=== PATIENT | male | born 1950 | race Hispanic/Latino ===

== ENCOUNTER 2019-09-20 03:20 | Inpatient (IN) | payer OTHER ==
--- OUTSIDE RECORDS SUMMARY | 2019-09-20 03:23 | XMS REPORT ---
:1950 Author Organization eClinicalWorks Care Team Providers Name Role Phone Braxton Payne Provider Role Unavailable Allergies, Adverse Reactions, Alerts Substance Reaction Event Type N.K.D.A. Info Not Available Non Drug Allergy Problems Problem Type Condition Code Onset Dates Condition Statu s Problem Pain in joint of left knee M25.562 A ctive Problem Primary osteoarthritis of left knee M17.12 Active Assessment Primary osteoarthritis of left knee M17.12 Active Assessment Pain in joint of left knee M25.562 A ctive Medications Medication Code Code Instructions Start End Date Status Dosage System Date Combigan [facility] [address]-62 Active not defined Indapamide [facility] [address]-98 Active not defined Flonase [facility] [id number] Active not defined Fenofibrate [facility] [address]-93 Active not defined Omeprazole [facility] 29081207082 Active not defined Lumigan [facility] [address]-85 Active not defined Carbamazepine [facility] [address]-80 Active not defined Celecoxib [facility] [address]-58 Active not defined Results No Known Results Summary Purpose eClinicalWorks Submission
--- OUTSIDE RECORDS SUMMARY | 2019-09-20 03:23 | XMS REPORT ---
[...] Start End Date Status Dosage System Date Indapamide [facility] [address]-14 Active not defined Flonase [facility] 69148536771 Active not defined Fenofibrate [facility] [address]-42 Active not defined Omeprazole [facility] 13394962652 Active not defined Carbamazepine [facility] [address]-22 Active not defined Lumigan [facility] [address]-30 Active not defined Celecoxib [facility] [address]-85 Active not defined Combigan [facility] [address]-71 Active not defined Results No Known Results Summary Purpose eClinicalWorks Submission
--- OUTSIDE RECORDS SUMMARY | 2019-09-20 03:23 | XMS REPORT ---
:1950 Author Organization eClinicalWorks Care Team Providers Name Role Phone See Lopez Provider Role Unavailable Allergies, Adverse Reactions, Alerts [...] Start End Date Status Dosage System Date Fenofibrate [facility] [address]-98 Active not defined Omeprazole [facility] 15077295651 Active not defined Lumigan [facility] [address]-44 Active not defined Indapamide [facility] [address]-89 Active not defined [address] [facility] [address]-49 Active not defined Flonase [facility] 66757974293 Active not defined Combigan [facility] [address]-40 Active not defined Carbamazepine [facility] [address]-11 Active not defined Results No Known Results Summary Purpose eClinicalWorks Submission
--- OUTSIDE RECORDS SUMMARY | 2019-09-20 03:23 | XMS REPORT ---
[...] Start End Date Status Dosage System Date Lumigan [facility] [address]-13 Active not defined Indapamide [facility] [address]-09 Active not defined Omeprazole [facility] 08228053705 Active not defined Celecoxib [facility] [address]-40 Active not defined Carbamazepine [facility] [address]-31 Active not defined Combigan [facility] [address]-99 Active not defined Flonase [facility] 05155937759 Active not defined Fenofibrate [facility] [address]-28 Active not defined Results No Known Results Summary Purpose eClinicalWorks Submission
--- OUTSIDE RECORDS SUMMARY | 2019-09-20 03:23 | XMS REPORT ---
[...] joint of left knee M25.562 A ctive Assessment Primary osteoarthritis of left knee M17.12 Active Medications Medication Code Code Instructions Start End Date Status Dosage System Date Lumigan [facility] [address]-19 Active not defined Combigan [facility] [address]-41 Active not defined Flonase [facility] 00317516342 Active not defined Celecoxib [facility] [address]-10 Active not defined Carbamazepine [facility] [address]-25 Active not defined Indapamide [facility] [address]-15 Active not defined Omeprazole [facility] 21798229357 Active not defined Fenofibrate [facility] [address]-40 Active not defined Results No Known Results Summary Purpose eClinicalWorks Submission
--- OUTSIDE RECORDS SUMMARY | 2019-09-20 03:23 | XMS REPORT ---
:1950 Author Organization eClinicalWorks Care Team Providers Name Role Phone See Lopez Provider Role Unavailable Allergies No Known Allergies Problems Problem Type Condition Code Onset Dates Condition Statu s Problem Pain in joint of left knee M25.562 A ctive Problem Primary osteoarthritis of left knee M17.12 Active Medications No Known Medications Results No Known Results Summary Purpose eClinicalWorks Submission
--- OUTSIDE RECORDS SUMMARY | 2019-09-20 03:23 | XMS REPORT ---
[...] Start End Date Status Dosage System Date Flonase [facility] [id number] Active not defined Omeprazole [facility] 76785586761 Active not defined Lumigan [facility] [address]-21 Active not defined Carbamazepine [facility] [address]-61 Active not defined Celecoxib [facility] [address]-27 Active not defined Combigan [facility] [address]-66 Active not defined Fenofibrate [facility] [address]-52 Active not defined Indapamide [facility] [address]-35 Active not defined Results No Known Results Summary Purpose eClinicalWorks Submission
--- OUTSIDE RECORDS SUMMARY | 2019-09-20 03:23 | XMS REPORT ---
:1950 Author Organization eClinicalWorks Care Team Providers Name Role Phone Payne Braxton Provider Role Unavailable Allergies, Adverse Reactions, Alerts [...] left knee M17.12 Active Medications Medication Code System Code Instructions Start Date End Date Status Dosage Celecoxib [facility] 30594-946 Active not defined 6-06 Flonase NDC 0 Active not defined Carbamazepine [facility] 71324-587 Active not defi alex 9-01 Lumigan [facility] 84707-949 Active not defined 5-03 Omeprazole [facility] 76055-940 Active not defined 1-01 Combigan [facility] 55689-661 Active not defined 1-05 Fenofibrate [facility] 71570-363 Active not define d 3-10 Indapamide [facility] 12759-152 Active not defined 7-11 Results No Known Results Summary Purpose eClinicalWorks Submission
--- OUTSIDE RECORDS SUMMARY | 2019-09-20 03:23 | XMS REPORT ---
:1950 Author Organization [facility] t Address [address] [place] [address] Care Team Providers Name Role Phone Unavailable Unavailable Unavailable Problems Condition Condition Condition Status Onset Resolution Last Treating Co mments Source Name Details Category Date Date Treatment Clinician Date Pain in Pain in Diagnosis [facility] Primary Primary Diagnosis [facility] Allergies, Adverse Reactions, Alerts This patient has no known allergies or adverse reactions. Medications Ordered Filled Start Stop Current Ordering Indication Dosage Frequency Signature Comments Components Source Medication Medication Date Date Medication? Clinician (SIG) Name Name Celecoxib Celecoxib Yes See not [facility] Carbamazepi Carbamazepi Yes See not [facility] Lumigan Lumigan Yes See not [facility] Combigan Combigan Yes See not [facility] Fenofibrate Fenofibrate Yes See not [facility] Indapamide Indapamide Yes See not [facility] Flonase Flonase Yes See not [facility] Omeprazole Omeprazole Yes See not [facility] Procedures This patient has no known procedures. Encounters Start End Encounter Admission Attending Care Care Encounter Source Date/Time Date/Time Type Type Clinicians Facility Department ID 2019-06-28 2019-06-28 [facility] [id number] [facility] 2019-06-21 2019-06-21 [facility] [id number] [facility] 10[facility] 2019-06-15 2019-06-15 [facility] [id number] 10[facility] 10:15[facility] 2019-06-07 2019-06-07 [facility] [id number] 12:33:00 12:33:00 [facility] 2019-06-04 2019-06-04 [facility] [id number] 10[facility]47:00 10:47:00 [facility] 2019-05-28 2019-05-28 [facility] [id number] 08[facility]30:00 08:30:00 [facility] 2018-11-22 2018-11-22 [facility] [id number] 15:30:00 15:30:00 t [facility] 2018-11-15 2018-11-15 [facility] [id number] 15:30:00 15:30:00 t [facility] 2018-11-07 2018-11-07 [facility] [id number] 08:[facility]00 08:00:00 t [facility] 2018-10-26 2018-10-26 [facility] [id number] 08:[facility]:00 08:00:00 t [facility] Clinics Results This patient has no known results.
--- OUTSIDE RECORDS SUMMARY | 2019-09-20 03:23 | XMS REPORT ---
[...] Start End Date Status Dosage System Date Omeprazole [facility] [id number] Active not defined Carbamazepine [facility] [address]-55 Active not defined Celecoxib [facility] [address]-77 Active not defined Flonase [facility] 93256891475 Active not defined Fenofibrate [facility] [address]-43 Active not defined Combigan [facility] [address]-94 Active not defined Lumigan [facility] [address]-12 Active not defined Indapamide [facility] [address]-93 Active not defined Results No Known Results Summary Purpose eClinicalWorks Submission
[2019-09-20] MEDS ORDERED: ONDANSETRON 4 MG/2 ML VIAL ONE (05:11)
[2019-09-20] MEDS ORDERED: MORPHINE 4 MG/ML SYR ONE (05:11)
[2019-09-20 05:19] LABS: Absolute Lymphocytes (CBC) 1.1 K/uL (0.7-4.9); Basophils % 1.1 % (0-1.3); Hematocrit 37.7 % (39.6-49.0); Lymphocytes % 8.4 % (15.3-44.8); MPV 9.6 fL (7.6-11.3); RBC Red Blood Cell Count 4.21 M/uL (4.33-5.43)
[2019-09-20 05:59] LABS: BUN Blood Urea Nitrogen 22 mg/dL (7-18); Bicarbonate 26 mmol/L (21-32); Glucose Level 130 mg/dL (74-106); Sodium Level 141 mmol/L (136-145)
[2019-09-20 06:00] LABS: ALT/SGPT 28 U/L (12-78); AST/SGOT 21 U/L (15-37); Albumin 3.5 g/dL (3.4-5.0); Alkaline Phosphatase 66 U/L (45-117); Bilirubin Direct < 0.1 mg/dL (0-0.2); Bilirubin Total 0.2 mg/dL (0.2-1.0); Lipase 124 U/L (73-393); Potassium 3.3 mmol/L (3.5-5.1); Protein, Total 7.7 g/dL (6.4-8.2)
[2019-09-20] MEDS ORDERED: MEPERIDINE HCL 25 MG/0.5 ML ONE (06:19)
[2019-09-20 06:39] LABS: Blood Morphology Comment NOT SEEN (NOT SEEN); Platelet Estimate ADEQ
[2019-09-20] MEDS ORDERED: LIDOCAINE VISCOUS 2% SOLN 15 ML UDC ONE (06:55)
[2019-09-20] MEDS ORDERED: MAGNE/ALUM HYDROXD 30 ML UCUP ONE (06:55)
[2019-09-20] MEDS ORDERED: HYDROMORPHONE HCL 1 MG/ML INJ ONE (08:02)
--- NOTE | 2019-09-20 08:21 | RAD REPORT ---
EXAM DESCRIPTION: CT - Chest Abd Pelvis Wo Con - 09/20/2019 6:43 am CLINICAL HISTORY: Chest and abdomen pain. ABD PAIN COMPARISON: RAD CHEST PA AND LAT (2 VIEWS) dated 07/24/2015; CHEST PA AND LAT 2 VIEW dated 12/06/2014 TECHNIQUE: A limited noncontrast study was performed. All CT scans are performed using dose optimization technique as appropriate and may include automated exposure control or mA/KV adjustment according to patient size. FINDINGS: Linear subsegmental atelectasis is present in the right lung base.4.1 x 3.3 cm pulmonary m ass lesion is seen in the posterior right lower lobe.No pleural or pericardial effusion.No intrathora cic adenopathy. Mild diffuse fatty liver is present. The spleen, pancreas, adrenal glands show no acute process. Bila teral renal cysts are present varying sizes. No bowel obstruction, free air, free fluid or abscess. Normal appendix. Sigmoid diverticulosis coli i s present without diverticulitis. No pathologic lymphadenopathy in the abdomen or pelvis. Prostate gl and is mildly to moderately enlarged. Fat containing bilateral inguinal hernias are present. No worrisome osseous finding. IMPRESSION: 4.1 x 3.3 cm right lower lobe pulmonary mass is present likely neoplastic in etiology. Sigmoid diverticulosis coli is present without evidence of diverticulitis. Mild diffuse fatty liver.
--- NOTE | 2019-09-20 09:15 | ER ---
Nurse's Notes [facility] Name: Pedro Hou Age: 68 yrs Sex: Male : 1950 Arrival Date: 09/20/2019 Time: 03:23 Bed 4 Private MD: Diagnosis: Acute cholecystitis Presentation: 09/19 03:34 Chief complaint: Patient states: "I've had this pain for about 4 hours and it's not lp1 going away"; patient hold epigastric area; Denies any nausea, vomiting, diarrhea, constipation; States last eaten about 1700. Coronavirus screen: Proceed with normal triage. Ebola Screen: No symptoms or risks identified at this time. Risk Assessment: Do you want to hurt yourself or someone else? Patient reports no desire to harm self or others. Onset of symptoms was September 19, 2019 at 22:30. 03:34 Method Of Arrival: Ambulatory lp1 03:34 Acuity: HAN 3 lp1 03:39 Initial Sepsis Screen: Does the patient meet any 2 criteria? No. Patient's initial lp1 sepsis screen is negative. Does the patient have a suspected source of infection? No. Patient's initial sepsis screen is negative. Historical: - Allergies: 03:36 No Known Allergies; lp1 - Home Meds: 03:36 Glipizide Oral [Active]; Tricor Oral [Active]; lp1 - PMHx: 03:36 Diabetes - NIDDM; Hyperlipidemia; lp1 - PSHx: 03:36 Knee surgery; lp1 - Immunization history:: Adult Immunizations up to date. - Social history:: Smoking status: Patient denies any tobacco usage or history of. Screenin:36 Abuse screen: Denies threats or abuse. Denies injuries from another. Nutritional lp1 screening: No deficits noted. Tuberculosis screening: No symptoms or risk factors identified. 04:19 Fall Risk None identified. wh Assessment: 04:17 General: Appears in no apparent distress. Behavior is calm, cooperative, appropriate wh for age. Pain: Complains of pain in epigastric area, right upper quadrant and left upper quadrant Pain does not radiate. Pain currently is 8 out of 10 on a pain scale. Quality of pain is described as stinging, Pain began 4 hours ago. Neuro: Level of Consciousness is awake, alert, obeys commands, Oriented to person, place, time, situation, Appropriate for age. Cardiovascular: Heart tones S1 S2. Cardiovascular: Rhythm is regular. Respiratory: Airway is patent Respiratory effort is even, unlabored, Respiratory pattern is regular, symmetrical, Breath sounds are clear bilaterally. GI: Abdomen is flat, non-distended, Abd is soft and non tender X 4 quads. Reports upper abdominal pain. : No signs and/or symptoms were reported regarding the genitourinary system. EENT: No signs and/or symptoms were reported regarding the EENT system. Derm: Skin is intact, is healthy with good turgor, Skin is pink, warm \\T\\ dry. normal. Musculoskeletal: Circulation, motion, and sensation intact. 05:15 Reassessment: Patient appears in no apparent distress at this time. No changes from previously documented assessment. Patient and/or family updated on plan of care and expected duration. Pain level reassessed. Patient is alert, oriented x 3, equal unlabored respirations, skin warm/dry/pink. 06:16 Reassessment: Patient appears in no apparent distress at this time. No changes from previously documented assessment. Patient and/or family updated on plan of care and expected duration. Pain level reassessed. Patient is alert, oriented x 3, equal unlabored respirations, skin warm/dry/pink. 07:50 General: Appears in no apparent distress. uncomfortable, obese, Behavior is jl7 cooperative. Pain: Complains of pain in right upper quadrant Pain does not radiate. Pain currently is 10 out of 10 on a pain scale. Is continuous. Neuro: Level of Consciousness is awake, alert, obeys commands, Oriented to person, place, time, situation. Cardiovascular: Patient's skin is warm and dry. Respiratory: Airway is patent Respiratory effort is even, unlabored, Respiratory pattern is regular, symmetrical. GI: Abdomen is round non-distended, Abd is soft and non tender Reports upper abdominal pain. Derm: Skin is pink, warm \\T\\ dry. 08:30 Reassessment: Pt reports decreased pain, rated 8/10 at this time. jl7 09:35 Reassessment: Pt c/o increased pain, ERP notified, see MAR for orders. jl7 10:30 Reassessment: Patient appears in no apparent distress at this time. No changes from 7 previously documented assessment. Patient and/or family updated on plan of care and expected duration. Pain level reassessed. Patient is alert, oriented x 3, equal unlabored respirations, skin warm/dry/pink. 11:30 Reassessment: Patient appears in no apparent distress at this time. Patient and/or jl7 family updated on plan of care and expected duration. Pain level reassessed. Patient is alert, oriented x 3, equal unlabored respirations, skin warm/dry/pink. Vital Signs: 03:39 BP 148 / 71; Pulse 62; Resp 18; Temp 98.7(O); Pulse Ox 98% on R/A; Weight 104.33 kg lp1 (R); Height 5 ft. 11 in. (180.34 cm); Pain 10/10; 04:19 BP 130 / 62; Pulse 59; Resp 18; Pulse Ox 99% on R/A; wh 06:16 BP 152 / 82; Pulse 53; Resp 18; Pulse Ox 99% on R/A; wh 07:00 BP 145 / 68; Pulse 66; Resp 16; Pulse Ox 95% ; Pain 10/10; jl7 08:00 BP 144 / 74; Pulse 70; Resp 16; Pulse Ox 98% ; Pain 10/10; jl7 08:15 BP 138 / 72; Pulse 66; Resp 16; Pulse Ox 96% on R/A; jl7 08:30 BP 140 / 73; Pulse 66; Resp 16; Pulse Ox 100% on 4 lpm NC; jl7 10:00 BP 152 / 93; Pulse 95; Resp 16 S; Pulse Ox 100% on 2 lpm NC; jl7 11:00 BP 142 / 82; Pulse 69; Resp 16; Pulse Ox 98% on 2 lpm NC; jl7 11:30 BP 136 / 73; Pulse 81; Resp 16; Pulse Ox 94% ; jl7 03:39 Body Mass Index 32.08 (104.33 kg, 180.34 cm) lp1 ED Course: 03:23 Patient arrived in ED. cl3 03:30 Stevie Weeks is Primary Nurse. wh 03:36 Triage completed. lp1 03:36 Arm band placed on. lp1 04:18 Inserted saline lock: 20 gauge in left antecubital area, using aseptic technique. Blood wh collected. 04:19 Patient has correct armband on for positive identification. Placed in gown. Bed in low wh position. Call light in reach. Side rails up X 1. Pulse ox on. NIBP on. 06:06 [facility] jr[facility] 06:06 Bony Feldman MD is Attending Physician. jr8 06:44 Chest Abd Pelvis Wo Con In Process Unspecified. EDMS 08:06 Missed attempt(s): 22 gauge in right wrist. Bleeding controlled, band aid applied, jl7 catheter tip intact. 08:10 Missed attempt(s): 20 gauge in right antecubital area. Bleeding controlled, band aid jl7 applied, catheter tip intact. 08:12 Inserted saline lock: 22 gauge in left hand, using aseptic technique. jl7 09:14 Prince Rosenberg MD is Hospitalizing Provider. jr8 09:19 US Abdomen Limited In Process Unspecified. EDMS 10:00 No provider procedures requiring assistance completed. Patient admitted, IV remains in jl7 place. intact, No redness/swelling at site. Administered Medications: 05:11 Drug: morphine 4 mg {Note: RASS 0.} Route: IVP; Site: left antecubital; 06:17 Follow up: Response: No adverse reaction; Pain is unchanged, physician notified; RASS: Alert and Calm (0) 05:13 Drug: Zofran (Ondansetron) 4 mg Route: IVP; Site: left antecubital; 06:17 Follow up: Response: No adverse reaction; Nausea is decreased 06:17 Drug: Demerol 25 mg {Note: RASS 0.} Route: IVP; Site: left antecubital; 07:00 Follow up: Response: No adverse reaction; Pain is unchanged, physician notified jl7 06:50 Drug: GI Cocktail without - (Maalox Suspension 30 ml, Lidocaine Liquid 2 % 15 wh ml) Route: PO; 08:10 Follow up: Response: No adverse reaction; Pain is unchanged, physician notified jl7 08:14 Drug: Dilaudid 1 mg Route: IVP; Site: left hand; jl7 08:30 Follow up: Response: No adverse reaction; Pain is decreased jl7 09:40 Drug: Dilaudid 0.5 mg Route: IVP; Site: left hand; jl7 10:00 Follow up: Response: No adverse reaction; Pain is decreased jl7 09:50 Drug: Zosyn 3.375 grams Route: IVPB; Infused Over: 60 mins; Site: left hand; jl7 10:50 Follow up: Response: No adverse reaction; IV Status: Completed infusion jl7 10:20 Drug: NS 0.9% 1000 ml Route: IV; Rate: 75 ml/hr; Site: left hand; jl7 10:21 Follow up: IV Status: Infusion continued upon admission jl7 Outcome: 09:14 Decision to Hospitalize by Provider. jr8 12:15 Admitted to Med/surg accompanied by tech, via wheelchair, room 210, with chart, Report jl7 called to DAVID Machuca 12:15 Condition: stable 12:15 Discharge instructions given to patient, Instructed on the need for admit, Demonstrated understanding of instructions. 12:27 Patient left the ED. jl7 Signatures: Dispatcher [employer] EDKeke Conte, RN RN lp1 Shashi Saab PA PA jr8 Taj Delaney RN RN jl7 Stevie Weeks Charde cl3 Corrections: (The following items were deleted from the chart) 09:52 08:30 Reassessment: ambreen jlGarcia
--- NOTE | 2019-09-20 09:15 | EDPHYS ---
Physician Documentation [facility] Name: Pedro Hou Age: 68 yrs Sex: Male : 1950 Arrival Date: 09/20/2019 Time: 03:23 Bed 4 Private MD: ED Physician Bony Feldman HPI: 09/19 06:24 This 68 yrs old Male presents to ER via Ambulatory with complaints of Upper jr8 Abdominal Pain. 06:24 The patient presents with abdominal pain in the epigastric area, in the upper abdomen. jr8 Onset: The symptoms/episode began/occurred acutely, today. The symptoms do not radiate. Associated signs and symptoms: Pertinent positives: nausea. The symptoms are described as stabbing. Modifying factors: The symptoms are alleviated by nothing, the symptoms are aggravated by nothing. Severity of pain: At its worst the pain was moderate in the emergency department the pain is unchanged. The patient has not experienced similar symptoms in the past. The patient has not recently seen a physician. Historical: - Allergies: 03:36 No Known Allergies; lp1 - Home Meds: 03:36 Glipizide Oral [Active]; Tricor Oral [Active]; lp1 - PMHx: 03:36 Diabetes - NIDDM; Hyperlipidemia; lp1 - PSHx: 03:36 Knee surgery; lp1 - Immunization history:: Adult Immunizations up to date. - Social history:: Smoking status: Patient denies any tobacco usage or history of. ROS: 06:24 Eyes: Negative for injury, pain, redness, and discharge, ENT: Negative for injury, jr8 pain, and discharge, Neck: Negative for injury, pain, and swelling, Cardiovascular: Negative for chest pain, palpitations, and edema, Respiratory: Negative for shortness of breath, cough, wheezing, and pleuritic chest pain, Back: Negative for injury and pain, MS/Extremity: Negative for injury and deformity, Skin: Negative for injury, rash, and discoloration, Neuro: Negative for headache, weakness, numbness, tingling, and seizure. 06:24 Abdomen/GI: Positive for abdominal pain, nausea, Negative for vomiting, diarrhea, constipation, abdominal cramps, abdominal distension. Exam: 06:24 Eyes: Pupils equal round and reactive to light, extra-ocular motions intact. Lids and jr8 lashes normal. Conjunctiva and sclera are non-icteric and not injected. Cornea within normal limits. Periorbital areas with no swelling, redness, or edema. ENT: Nares patent. No nasal discharge, no septal abnormalities noted. Tympanic membranes are normal and external auditory canals are clear. Oropharynx with no redness, swelling, or masses, exudates, or evidence of obstruction, uvula midline. Mucous membranes moist. Neck: Trachea midline, no thyromegaly or masses palpated, and no cervical lymphadenopathy. Supple, full range of motion without nuchal rigidity, or vertebral point tenderness. No Meningismus. Cardiovascular: Regular rate and rhythm with a normal S1 and S2. No gallops, murmurs, or rubs. Normal PMI, no JVD. No pulse deficits. Respiratory: Lungs have equal breath sounds bilaterally, clear to auscultation and percussion. No rales, rhonchi or wheezes noted. No increased work of breathing, no retractions or nasal flaring. Back: No spinal tenderness. No costovertebral tenderness. Full range of motion. Skin: Warm, dry with normal turgor. Normal color with no rashes, no lesions, and no evidence of cellulitis. MS/ Extremity: Pulses equal, no cyanosis. Neurovascular intact. Full, normal range of motion. Neuro: Awake and alert, GCS 15, oriented to person, place, time, and situation. Cranial nerves II-XII grossly intact. Motor strength 5/5 in all extremities. Sensory grossly intact. Cerebellar exam normal. Normal gait. 06:24 Abdomen/GI: Inspection: obese Bowel sounds: active, all quadrants, Palpation: soft, in all quadrants, mild abdominal tenderness, in the epigastric area, moderate abdominal tenderness, in the right upper quadrant, voluntary guarding, is elicited in the epigastric area, involuntary guarding, is not appreciated, no appreciated organomegaly, Indicators: Hollingsworth's sign is positive, Liver: no appreciated palpable abnormalities. 06:26 ECG was reviewed by the Attending Physician. jr8 Vital Signs: 03:39 BP 148 / 71; Pulse 62; Resp 18; Temp 98.7(O); Pulse Ox 98% on R/A; Weight 104.33 kg lp1 (R); Height 5 ft. 11 in. (180.34 cm); Pain 10/10; 04:19 BP 130 / 62; Pulse 59; Resp 18; Pulse Ox 99% on R/A; 06:16 BP 152 / 82; Pulse 53; Resp 18; Pulse Ox 99% on R/A; 07:00 BP 145 / 68; Pulse 66; Resp 16; Pulse Ox 95% ; Pain 10/10; jl7 08:00 BP 144 / 74; Pulse 70; Resp 16; Pulse Ox 98% ; Pain 10/10; jl7 08:15 BP 138 / 72; Pulse 66; Resp 16; Pulse Ox 96% on R/A; jl7 08:30 BP 140 / 73; Pulse 66; Resp 16; Pulse Ox 100% on 4 lpm NC; jl7 10:00 BP 152 / 93; Pulse 95; Resp 16 S; Pulse Ox 100% on 2 lpm NC; jl7 11:00 BP 142 / 82; Pulse 69; Resp 16; Pulse Ox 98% on 2 lpm NC; jl7 11:30 BP 136 / 73; Pulse 81; Resp 16; Pulse Ox 94% ; jl7 03:39 Body Mass Index 32.08 (104.33 kg, 180.34 cm) lp1 MDM: 06:06 Patient medically screened. jr8 06:28 ED course: Was notified while patient was in CT that he has large nodule to right lung jr8 base. Advised that they can scan chest to makes sure everything was ok . 09:13 Data reviewed: vital signs, nurses notes, lab test result(s), EKG, radiologic studies, jr8 CT scan, ultrasound. Data interpreted: Pulse oximetry: on room air is 100 %. Interpretation: normal. Counseling: I had a detailed discussion with the patient and/or guardian regarding: the historical points, exam findings, and any diagnostic results supporting the discharge/admit diagnosis, lab results, radiology results, the need for further work-up and treatment in the hospital. 09:53 Physician consultation: Julian Rivers MD was called at 09:54, was contacted at 09:54, jr8 regarding consult, and will see patient. 09:55 ED course: Consulted Dr. Mobley as well for progressive lung mass at right lung base .jr8 09/19 03:57 Order name: Basic Metabolic Panel; Complete Time: 06:06 09/19 03:57 Order name: CBC with Diff; Complete Time: 06:46 09/19 03:57 Order name: Hepatic Function; Complete Time: 06:06 09/19 03:57 Order name: Lipase; Complete Time: 06:06 09/19 06:40 Order name: Manual Differential; Complete Time: 06:46 EDMS 09/19 06:31 Order name: Chest Abd Pelvis Wo Con; Complete Time: 08:22 EDMS 09/19 08:30 Order name: US Abdomen Limited; Complete Time: 09:52 jr8 09/19 03:57 Order name: IV Saline Lock; Complete Time: 04:14 09/19 03:57 Order name: Labs collected and sent; Complete Time: 04:14 09/19 03:57 Order name: EKG - Nurse/Tech; Complete Time: 04:14 09/19 08:04 Order name: EKG Electrocardiogram [facility] 09/19 09:45 Order name: NPO; Complete Time: 10:20 jr8 EC:26 Rate is 60 beats/min. Rhythm is regular, Normal Sinus Rhythm. QRS [place] is Normal. DE jr8 interval is normal at 182 msec. QRS interval is normal at 96 msec. QT interval is normal at 394 msec. No Q waves. T waves are Normal. No ST changes noted. Clinical impression: Normal ECG and No evidence of ischemia. Interpreted by me. Reviewed by me. Administered Medications: 05:11 Drug: morphine 4 mg {Note: RASS 0.} Route: IVP; Site: left antecubital; 06:17 Follow up: Response: No adverse reaction; Pain is unchanged, physician notified; RASS: Alert and Calm (0) 05:13 Drug: Zofran (Ondansetron) 4 mg Route: IVP; Site: left antecubital; 06:17 Follow up: Response: No adverse reaction; Nausea is decreased 06:17 Drug: Demerol 25 mg {Note: RASS 0.} Route: IVP; Site: left antecubital; 07:00 Follow up: Response: No adverse reaction; Pain is unchanged, physician notified jl7 06:50 Drug: GI Cocktail without - (Maalox Suspension 30 ml, Lidocaine Liquid 2 % 15 wh ml) Route: PO; 08:10 Follow up: Response: No adverse reaction; Pain is unchanged, physician notified jl7 08:14 Drug: Dilaudid 1 mg Route: IVP; Site: left hand; jl7 08:30 Follow up: Response: No adverse reaction; Pain is decreased jl7 09:40 Drug: Dilaudid 0.5 mg Route: IVP; Site: left hand; jl7 10:00 Follow up: Response: No adverse reaction; Pain is decreased jl7 09:50 Drug: Zosyn 3.375 grams Route: IVPB; Infused Over: 60 mins; Site: left hand; jl7 10:50 Follow up: Response: No adverse reaction; IV Status: Completed infusion jl7 10:20 Drug: NS 0.9% 1000 ml Route: IV; Rate: 75 ml/hr; Site: left hand; jl7 10:21 Follow up: IV Status: Infusion continued upon admission jl7 Disposition: 09/20 03:22 Co-signature as Attending Physician, Bony Feldman MD. [facility] Disposition: 09/20/19 09:14 Hospitalization ordered by Prince Chet for Inpatient Admission. Preliminary diagnosis is Acute cholecystitis. - Bed requested for Telemetry/MedSurg (Inpatient). - Status is Inpatient Admission. jl7 - Condition is Fair. - Problem is new. - Symptoms have improved. Signatures: Dispatcher [employer] EDAK Jessenia Batista Laura, RN RN lp1 Shashi Saab PA PA jr8 Taj Delaney RN RN jl7 Stevie Weeks Maurice, MD MD [email or web address] Corrections: (The following items were deleted from the chart) 09/19 06:31 06:07 Abdomen Pelvis Wo Con+CT.RAD.BRZ ordered. EDAK EDMS 10:44 09:14 Hospitalization Ordered by Prince Chet BECKER for Inpatient Admission. Preliminary bd diagnosis is Acute cholecystitis. Bed requested for Telemetry/MedSurg (Inpatient). Status is Inpatient Admission. Condition is Fair. Problem is new. Symptoms have improved. jr8 12:27 10:44 09/20/2019 09:14 Hospitalization Ordered by Prince Chet BECKER for Inpatient jl7 Admission. Preliminary diagnosis is Acute cholecystitis. Bed requested for Telemetry/MedSurg (Inpatient). Status is Inpatient Admission. Condition is Fair. Problem is new. Symptoms have improved. bd
[2019-09-20] MEDS ORDERED: PIPER/TAZO/NS 3.375gm 3.375 GM/100 ML BAG ONE (09:28)
[2019-09-20] MEDS ORDERED: HYDROMORPHONE HCL 0.5 MG/0.5 ML INJ ONE (09:41)
--- NOTE | 2019-09-20 09:42 | RAD REPORT ---
EXAM DESCRIPTION: US - Abdomen Exam Limited - 09/20/2019 9:23 am CLINICAL HISTORY: ABD PAIN COMPARISON: Abdomen Exam Complete dated 06/20/2017 FINDINGS: The gallbladder demonstrates gallbladder sludge and gallstones. Gallbladder wall is thicke alex with mild pericholecystic fluid. The common bile duct is normal measuring 5-6 mm.. The liver demonstrates no findings of intrahepatic biliary dilatation. IMPRESSION: Acute cholecystitis.
[2019-09-20] MEDS ORDERED: NA CHLORIDE 0.9% 1,000 ML ONE (10:19)
[2019-09-20] MEDS ORDERED: KETOROLAC 30 MG/ML INJ IV PRN (10:40)
--- NOTE | 2019-09-20 10:40 | P.HP ---
Certification for Inpatient Patient admitted to: Inpatient With expected LOS: >2 Midnights Practitioner: I am a practitioner with admitting privileges, knowledge of patient current condition, hospital course, and medical plan of care. Services: Services provided to patient in accordance with Admission requirements found in Title 42 Section 412.3 of the Code of Federal Regulations Patient History Date of Service: 09/20/19 Reason for admission: acute abdominal pain History of Present Illness: Patient is a 68-year-old male with a known past medical history of morbid obesity, hyperlipidemia and prior tobacco smoking. He presented the ER complaining of an acute onset of abdominal pain which started 8 hr prior to presentation. Patient is reporting a right-sided abdominal pain radiating to the right upper quadrant region. His pain started approximately 6 hr after eating a brisk at. He denies any fever, chills, nausea or vomiting. He has experienced pain like this before but only intermittently. He arrived in the ER hemodynamically stable. A CT abdomen and pelvis revealed acute cholecystitis. Of note, there was also an incidental finding of right lower lobe mass. Patient has been made aware of the mass before and underwent biopsy in the past. He was told that this was benign. The CT scan was compared to a chest radiograph to be have in record from 2016. There has been any increase in size in the interval period. Allergies No Known Allergies Allergy (Verified 07/24/15 11:59) Home Medications: Atorvastatin Calcium [Lipitor] 10 mg PO BEDTIME 07/24/15 Indapamide [Lozol] 2.5 mg PO DAILY 07/24/15 Meclizine HCl [Motion Relief] 25 mg PO DAILY 07/24/15 Meloxicam [Mobic] 7.5 mg PO DAILY 07/24/15 Physical Examination - Physical Exam General: Alert, Cooperative, Acute distress, Mild distress HEENT: Atraumatic, Normocephalic, EOMI Neck: Supple Respiratory: Clear to auscultation bilaterally, Normal air movement Cardiovascular: No edema, Normal pulses, Regular rate/rhythm, Normal S1 S2 Gastrointestinal: Rigidity, Distended, Tenderness Musculoskeletal: No clubbing, No swelling, No contractures, No erythema, No tenderness, No warmth Integumentary: No rashes, No breakdown, No significant lesion, No tenderness/swelling, No erythema, No warmth, No cyanosis Neurological: Normal speech, Sensation intact, Normal affect - Studies Laboratory Data (last 24 hrs) 09/20/19 05:00: WBC 12.7 H, Hgb 12.7 L, Hct 37.7 L, Plt Count 306 09/20/19 05:00: Sodium 141, Potassium 3.3 L, BUN 22 H, Creatinine 1.75 H, Glucose 130 H, Total Bilirubin 0.2, AST 21, ALT 28, Alkaline Phosphatase 66, Lipase 124 Assessment and Plan - Problems (Diagnosis) (1) Acute cholecystitis Current Visit: Yes Status: Acute (2) Lung mass Current Visit: Yes Status: Acute (3) JANIE (acute kidney injury) Current Visit: Yes Status: Acute (4) Hypertriglyceridemia Current Visit: Yes Status: Acute - Plan Assessment A 68 year old former smoker with HLD and morbid obesity currenlty admitted with acute cholecystitits on CT A/P, which also captured an enlarging RLL mass Acute cholecytitis Lung mass JANIE HLD Former smoker Plan: Admit inpatient with telemetry Start LR infusion and zosyn Surgery has been consulted by ER for Cholecystectomy Start multi-modal pain regimen Clear liquid diet today Pulmonary has been consulted for RLL mass Will consult Radiology to evaluate Patient encouraged to continue abstinence from tobacco smoking Monitor renal function tomorrow - Advance Directives Does patient have a Living Will: No Does patient have a Durable POA for Healthcare: No
[2019-09-20] MEDS ORDERED: Ringers Lactate 1,000 ML IV SCH (11:00)
--- NOTE | 2019-09-20 11:14 | EKG ---
Test Date: 2019-09-20 Test Time: 04:04:20 Hardness Tester: SANDRA MEASUREMENT RESULTS: Intervals: Rate: 60 OK: 182 QRSD: 96 QT: 394 QTc: 394 [place]: P: 51 OK: 182 QRS: 7 T: 46 INTERPRETIVE STATEMENTS: Normal sinus rhythm Normal ECG Compared to ECG 08/25/2005 10:18:55 No significant changes Electronically Signed On 09-20-19 11:13:28 CDT by Yohan Pittman
[2019-09-20] MEDS ORDERED: TRAMADOL HCL 50 MG TAB PO PRN (12:34)
[2019-09-20] MEDS ORDERED: HYDROMORPHONE HCL 1 MG/ML INJ IV PRN (12:34)
[2019-09-20 13:57] VITALS: BMI 32.1
--- NOTE | 2019-09-20 14:57 | P.CNS ---
Date of Consult: 09/20/19 PC: This 68 year old male presented emergency room with severe right upper quadrant abdominal pain for diagnosis and treatment. HPC: Patient ate barbecue last night. Shortly thereafter experienced severe right upper quadrant abdominal pain, radiating into his back. The pain was the worst she has ever had. Presented to the emergency room were after receiving numerous bouts of pain medicine he finally got relief. PMH: Has had episodes for while, not to the same degree PSHx: Denies any prior abdominal surgeries SOC: No known allergies SYS REVIEW: No cough, wheeze, shortness of breath. No temperature or chills at home. Denies any urinary complaints. O/E awake alert vital signs are stable HEENT: Within normal limits not jaundiced Chest: Chest movement equal bilaterally ABD: She has a mild positive Hollingsworth sign LOCO: Intact DATA: Elevated white cell count, CT scan demonstrates acute cholecystitis with cholelithiasis. (patient also has a right lower lobe lung mass. This has not been worked up. We will do so as an outpatient once we are finished with his acute crisis.) IMPRESSION: Cholecystitis with cholelithiasis PLAN: I will assume the operating room for laparoscopic cholecystectomy possible open with cholangiogram. The risks of this procedure have been discussed. The possibility of bleeding, infection, injury to bile ducts blood vessels and intestines has been described. The possible need for an open and/or further surgeries and procedures was discussed. He understands and wants us to proceed.
[2019-09-20] MEDS: PIPER/TAZO/NS 3.375gm 3.375 GM/100 ML BAG IVPB SCH (16:49)
[2019-09-20] MEDS ORDERED: SUCCINYLCHOLINE 20 MG/ML (10 ML) IV ONE (17:47)
[2019-09-20] MEDS ORDERED: MIDAZOLAM HCL 2 MG/2 ML INJ ONE (17:48)
[2019-09-20] MEDS ORDERED: FENTANYL CITR 250 MCG/5 ML ONE (17:48)
[2019-09-20] MEDS ORDERED: propofoL 200 MG/20 ML VIAL IV ONE ×2 (17:48→18:14)
[2019-09-20] MEDS ORDERED: ROCURONIUM 50 MG/5 ML VIAL IV ONE ×2 (17:48→19:46)
[2019-09-20] MEDS ORDERED: Phenylephrine HCl 10 MG/ML 1 ML VIAL ONE (19:05)
[2019-09-20] MEDS ORDERED: Ringers Lactate 1,000 ML IV ONE (19:08)
[2019-09-20] MEDS ORDERED: GLYCOPYRROLATE 0.2 MG/ML SYR ONE (19:46)
[2019-09-20] MEDS ORDERED: NEOSTIGMINE 1 MG/ML -5 ML ONE (19:47)
--- NOTE | 2019-09-20 20:03 | P.OP ---
Preoperative diagnosis: Acute cholecystitis with cholelithiasis Postoperative diagnosis: Gangrene of the gallbladder Primary procedure: Laparoscopic cholecystectomy Secondary procedure: Intraoperative cholangiogram Other procedure(s): Closure of umbilical hernia Anesthesia: General Estimated blood loss: Less than 20 cc Specimen: 1 gallbladder and contents Operative Technique: The patient brought the operating room placed supine on the table general endotracheal anesthesia, the area of the abdomen was prepped with a DuraPrep solution, and he was draped in usual aseptic manner incision was made. This brought down through the skin and subcutaneous tissue. The Visiport was now used to enter the peritoneal cavity and created pneumoperitoneum to approximately 12 mm of mercury. Under direct vision a 5 mm trocar was placed in the upper midline, and 2 5 mm trocars on the right lateral side of the abdomen. The patient was now placed in reverse Trendelenburg and rolled to the left. We could see the right upper quadrant. The gallbladder was noted be markedly distended edematous with end obvious partial gangrenous and bilious staining of the posterior wall. We aspirated the contents of the gallbladder. The grasper was now placed on the fundus. Another was placed down by Magdalena's pouch. Applying gentle dissection we were able to expose the cystic duct and artery. The artery was controlled and divided. The cystic duct was identified. We could see where a stone was most likely lodged into the neck of this and have both thin out the wall of the considerably. The cystic duct was milked back any contents into the gallbladder itself. A clip was placed between the gallbladder and the cystic duct. An opening was now made into the cystic duct and an intraoperative cholangiogram was obtained. On injection to the cholangiocath were able to demonstrate there was no evidence of any filling defects in the extrahepatic biliary tree. We also saw the pancreatic duct Nelli well. The catheter was removed. Clips were placed on the distal portion of the cystic duct which was now fully transected. The gallbladder was now dissected free from the liver bed. It was suggested out the amount of edema between the gallbladder and the liver bed itself. The gallbladder and some spilled stones were now placed into the Endo-Catch which was brought out through the umbilical trocar site. The abdomen was then inspected to ensure adequate hemostasis. Judicious use of the electric cautery on the liver bed allowed us to do this. The area was now irrig ated with a copious amount of saline solution and the effluent was aspirated from the peritoneal cavity until it was clear. At this point attention was turned towards the emboli kiss. The patient had a preoperative obvious facile defect at the emboli kiss. We attempted to approximate this with 4 interrupted sutures of absorbable material. The pneumoperitoneum was now collapsed, the sutures tied, and peg applied to the skin. At the end of the procedure he was in a stable condition when sent to the recovery room. Needle sponge instrument count were correct. No drains were placed. Complications: None Transferred to: Recovery Room Condition: Good
[2019-09-20] MEDS ORDERED: MORPHINE 4 MG/ML SYR IV PRN (20:07)
[2019-09-20] MEDS ORDERED: ONDANSETRON 4 MG/2 ML VIAL IV PRN (20:07)
[2019-09-20] MEDS ORDERED: KETOROLAC 30 MG/ML INJ ONE (20:20)
--- NOTE | 2019-09-20 20:41 | RAD REPORT ---
EXAM DESCRIPTION: RADCholangiogram Oper-Xray Or09/20/2019 8:30 pm CLINICAL HISTORY: Abdominal pain FINDINGS: The examination was performed by Dr. Rivers. The cystic duct was cannulated and contrast administered. Contrast flowed into the duodenum. The biliary tree is normal caliber without a filling defect seen. Twelve fluoroscopic spot images obtained. Fluoroscopy time 0.3 seconds
[2019-09-20] MEDS: HOME MED 1 EA UNK (Brimonidine Tartrate/Timolol [Combigan 0.2%-0.5% Eye Drops] 1 DROP) EACH EYE SCH (21:00)
[2019-09-21] MEDS: PIPER/TAZO/NS 3.375gm 3.375 GM/100 ML BAG IVPB SCH ×3 (00:19→16:17)
[2019-09-21 06:13] LABS: Basophils % 0.3 % (0-1.3); Hematocrit 37.5 % (39.6-49.0); Lymphocytes % 6.6 % (15.3-44.8); MPV 9.4 fL (7.6-11.3); RBC Red Blood Cell Count 4.19 M/uL (4.33-5.43)
[2019-09-21 06:28] LABS: Magnesium 2.1 mg/dL (1.8-2.4); Potassium 3.6 mmol/L (3.5-5.1)
[2019-09-21] MEDS: CELECOXIB 100 MG CAPSULE PO SCH (08:46)
[2019-09-21] MEDS: FENOFIBRATE 160 MG TAB PO SCH (08:46)
[2019-09-21] MEDS: PANTOPRAZOLE 40MG TABLET PO SCH (08:47)
[2019-09-21] MEDS: HOME MED 1 EA UNK (Brimonidine Tartrate/Timolol [Combigan 0.2%-0.5% Eye Drops] 1 DROP) EACH EYE SCH ×2 (08:47→20:35)
[2019-09-21] MEDS: LORATADINE 10 MG TAB PO SCH (08:47)
[2019-09-21] MEDS: HOME MED 1 EA UNK (Carbamazepine [Tegretol Xr] 200 MG) PO SCH (08:48)
[2019-09-21] MEDS ORDERED: HOME MED 1 EA UNK (Celecoxib [Celecoxib] 200 MG) PO SCH (09:00)
[2019-09-21] MEDS ORDERED: HOME MED 1 EA UNK (Omeprazole [Prilosec] 40 MG) PO SCH (09:00)
--- NOTE | 2019-09-21 12:46 | P.PN ---
Date of Service: 09/21/19 S: Patient states he feels so much better than yesterday. Only thing that is bothering him is around his belly button. O: Vital signs are stable A: Surgically stable P: Discuss with patient the surgical findings. Also told him about his umbilical hernia that we sutured close. Then lays experiencing pain in that area. The that will be discharged today. He has a prescription for pain medicine. Was advised about taking milk a magnesia. He is to change his dressings daily. He may shower. Diet as tolerated. He will try and drink lots of water this weekend as well as ambulate. Should he have any questions or problems sees return to the emergency room, or contact me. I have called his and explained this as well. She is an him are both comfortable with this plan.
--- NOTE | 2019-09-21 12:49 | P.DS ---
Admission Date: 09/20/19 Discharge Date: 09/21/19 Disposition: ROUTINE DISCHARGE Discharge Condition: GOOD Reason for Admission: acute abdominal pain Procedures: Laparoscopic cholecystectomy with cholangiogram Brief History of Present Illness: Patient is an emergency room with severe abdominal pain for diagnosis and treatment. Hospital Course: The patient was seen in emergency room. He underwent a CT scan which demonstrated acute on chronic cholecystitis with cholelithiasis. He was brought to the operating room for laparoscopic cholecystectomy. At the time we found he had partial gangrene of his gallbladder. He underwent a cholangiogram that showed no evidence of any stones in the extrahepatic biliary tree. He was admitted postoperatively for observation and pain control. This morning he is up ambulating, tolerating a diet, voiding well on his own. His pain is well controlled on oral medications and he remains afebrile. He will be discharged at this time with a follow-up with me next week in my office. Should he have any questions or problems he is to go to the emergency room, or contact me. I have telephoned his and discussed this with her. Vital Signs/Physical Exam: Temp Pulse Resp BP Pulse Ox 98.6 F 87 17 109/56 L 95 09/21/19 12:00 09/21/19 12:00 09/21/19 12:00 09/21/19 12:00 09/21/19 12:00 Laboratory Data at Discharge: WBC 15.4 K/uL (4.3-10.9) H D 09/21/19 05:25 Hgb 12.7 g/dL (13.6-17.9) L 09/21/19 05:25 Hct 37.5 % (39.6-49.0) L 09/21/19 05:25 Plt Count 292 K/uL (152-406) 09/21/19 05:25 Sodium 138 mmol/L (136-145) 09/21/19 05:25 Potassium 3.6 mmol/L (3.5-5.1) 09/21/19 05:25 BUN 26 mg/dL (7-18) H 09/21/19 05:25 Creatinine 1.71 mg/dL (0.55-1.3) H 09/21/19 05:25 Glucose 119 mg/dL (74-106) H 09/21/19 05:25 Magnesium 2.1 mg/dL (1.8-2.4) 09/21/19 05:25 Total Bilirubin 0.2 mg/dL (0.2-1.0) 09/20/19 05:00 AST 21 U/L (15-37) 09/20/19 05:00 ALT 28 U/L (12-78) 09/20/19 05:00 Alkaline Phosphatase 66 U/L (45-117) 09/20/19 05:00 Lipase 124 U/L (73-393) 09/20/19 05:00 Home Medications: Brimonidine Tartrate/Timolol [Combigan 0.2%-0.5% Eye Drops] 1 drop EACH EYE BID 09/20/19 Carbamazepine [Tegretol Xr] 200 mg PO DAILY 09/20/19 Celecoxib 200 mg PO DAILY 09/20/19 Fenofibrate [Tricor*] 145 mg PO DAILY 09/20/19 Indapamide [Lozol] 2.5 mg PO DAILY 09/20/19 L.acidoph,Paracasei, B.lactis [Probiotic] 1 cap PO DAILY 09/20/19 Loratadine [Claritin*] 10 mg PO DAILY 09/20/19 Meclizine HCl [Motion Sickness Relief] 25 mg PO Q6HP PRN 09/20/19 Multivit-Min/FA/Lycopen/Lutein [Centrum Silver Men Tablet] 1 tab PO DAILY 09/20/19 Omeprazole [Prilosec] 40 mg PO DAILY 09/20/19
--- NOTE | 2019-09-21 14:46 | P.PN ---
Subjective Date of Service: 09/21/19 Chief Complaint: acute abdominal pain Subjective: Other (POD#1 S/P lap celia. Doing well. Cleared by surgery for discharge. Patient is staying one more day for lung biopsy.) Physical Examination - Vital Signs Temperature: 98.6 F Blood Pressure: 109/56 Pulse: 87 Respirations: 17 Pulse Ox (%): 95 - Physical Exam General: Alert, In no apparent distress, Cooperative, Obese HEENT: Atraumatic, Normocephalic, EOMI Neck: Supple Respiratory: Clear to auscultation bilaterally, Normal air movement Cardiovascular: No edema, Regular rate/rhythm, Normal S1 S2 Gastrointestinal: Soft and benign, Tenderness Musculoskeletal: No clubbing, No swelling, No contractures, No erythema, No tenderness, No warmth Integumentary: No rashes, No breakdown, No significant lesion, No tenderness/swelling, No erythema, No warmth, No cyanosis Neurological: Normal speech, Sensation intact, Normal affect Assessment & Plan - Problems (Diagnosis) (1) Acute cholecystitis Current Visit: Yes Status: Acute (2) Lung mass Current Visit: Yes Status: Acute (3) JANIE (acute kidney injury) Current Visit: Yes Status: Acute (4) Hypertriglyceridemia Current Visit: Yes Status: Acute Physician Review Additional Text: Assessment Patient is a 68 year old male former tobacco smoker with a PMH of obesity, HLD and HTN currently admitted with acute on chronic cholecystitis wiht cholelithiasis. He is POD#1 S/P lap cholecystectomy. Surgery has signed off. Of note, patient also has a lung mass that has grown in size. Radiology consulted on 09/20 for biopsy. Acute on chronic cholecystitis with cholelithiasis Lung mass Former tobacco smoker Obesity HLD HTN PLAN Patient is pending evaluation and possible lung biopsy by Radiology Continue multi-modal pain regimen Encourage ambulation and incentive spirometry Discharge after lung biopsy Resume home dose of tricor.
[2019-09-21] MEDS: HYDROCODONE/APAP 7.5/325 MG TAB PO PRN (20:32)
[2019-09-22] MEDS: PIPER/TAZO/NS 3.375gm 3.375 GM/100 ML BAG IVPB SCH ×2 (01:01→08:22)
[2019-09-22 04:53] LABS: Urine Appearance CLEAR; Urine Bilirubin NEGATIVE (NEG); Urine Blood NEGATIVE (NEG); Urine Color YELLOW; Urine Glucose NEGATIVE (NEG); Urine Protein NEGATIVE (NEG); Urine Specific Gravity <=1.005 (1.005-1.030); Urine pH 6.5 (5.0-7.0)
[2019-09-22] MEDS: HYDROCODONE/APAP 7.5/325 MG TAB PO PRN (05:43)
[2019-09-22 05:48] LABS: Urine Bacteria <20 /HPF (NONE SEEN); Urine RBC NONE SEEN /HPF (NONE SEEN)
[2019-09-22 05:49] LABS: Urine Culture Reflex Order NOT NEEDED
[2019-09-22 06:11] LABS: Absolute Lymphocytes (CBC) 0.7 K/uL (0.7-4.9); Basophils % 0.5 % (0-1.3); Hematocrit 36.2 % (39.6-49.0); Lymphocytes % 7.3 % (15.3-44.8); MPV 9.2 fL (7.6-11.3)
[2019-09-22] MEDS: FENOFIBRATE 160 MG TAB PO SCH (08:27)
[2019-09-22] MEDS: LORATADINE 10 MG TAB PO SCH (08:27)
[2019-09-22] MEDS: PANTOPRAZOLE 40MG TABLET PO SCH (08:27)
[2019-09-22] MEDS: HOME MED 1 EA UNK (Carbamazepine [Tegretol Xr] 200 MG) PO SCH (08:28)
[2019-09-22] MEDS: CELECOXIB 100 MG CAPSULE PO SCH (08:28)
[2019-09-22] MEDS: HOME MED 1 EA UNK (Brimonidine Tartrate/Timolol [Combigan 0.2%-0.5% Eye Drops] 1 DROP) EACH EYE SCH (08:28)
[2019-09-22 09:02] VITALS: O2SAT 94
--- NOTE | 2019-09-22 12:16 | P.PN ---
Subjective Date of Service: 09/22/19 Chief Complaint: acute abdominal pain Subjective: No new changes (Patient is having flatus and burping. Yet to have a BM. He is staying the hospital pending lung biopsy for lung mass.) Physical Examination - Vital Signs Temperature: 97.9 F Blood Pressure: 116/63 Pulse: 76 Respirations: 18 Pulse Ox (%): 94 - Physical Exam General: Alert, In no apparent distress, Cooperative HEENT: Atraumatic, Normocephalic, EOMI Neck: Supple Respiratory: Clear to auscultation bilaterally, Normal air movement Cardiovascular: No edema, Normal pulses, Regular rate/rhythm, Normal S1 S2 Gastrointestinal: Other (Decreased bowel sounds), Distended, Tenderness Musculoskeletal: No clubbing, No swelling, No contractures, No erythema, No tenderness, No warmth Integumentary: No rashes, No breakdown, No significant lesion, No tenderness/swelling, No erythema, No warmth, No cyanosis Neurological: Normal speech, Sensation intact, Normal affect Assessment & Plan - Problems (Diagnosis) (1) Acute cholecystitis Current Visit: Yes Status: Acute (2) Lung mass Current Visit: Yes Status: Acute (3) JANIE (acute kidney injury) Current Visit: Yes Status: Acute (4) Hypertriglyceridemia Current Visit: Yes Status: Acute Physician Review Additional Text: Assessment Patient is a 68 year old male former tobacco smoker with a PMH of obesity, HLD and HTN currently admitted with acute on chronic cholecystitis wiht cholelithiasis. He is POD#2 S/P lap cholecystectomy. Surgery has signed off. Of note, patient also has a lung mass that has grown in size. Radiology consulted on 09/20 for biopsy. Acute on chronic cholecystitis with cholelithiasis Lung mass Former tobacco smoker Obesity HLD HTN PLAN Patient is pending evaluation and possible lung biopsy by Radiology Continue multi-modal pain regimen Bowel regimen Encourage ambulation and incentive spirometry Discharge after lung biopsy Resume home dose of tricor.
[2019-09-22] MEDS ORDERED: DOCUSATE NA 100 MG CAP PO SCH (12:17)
[2019-09-22] MEDS ORDERED: Ringers Lactate 1,000 ML IV SCH (15:00)
--- NOTE | 2019-09-22 15:40 | P.DS ---
Admission Date: 09/20/19 Discharge Date: 09/22/19 Disposition: ROUTINE DISCHARGE Discharge Condition: GOOD Reason for Admission: acute abdominal pain - Problems (1) Acute cholecystitis Current Visit: Yes Status: Acute (2) Lung mass Current Visit: Yes Status: Acute (3) JANIE (acute kidney injury) Current Visit: Yes Status: Acute (4) Hypertriglyceridemia Current Visit: Yes Status: Acute Brief History of Present Illness: Patient is a 68-year-old male with a known past medical history of morbid obesity, hyperlipidemia and prior tobacco smoking. He presented the ER complaining of an acute onset of abdominal pain which started 8 hr prior to presentation. Patient is reporting a right-sided abdominal pain radiating to the right upper quadrant region. His pain started approximately 6 hr after eating a brisk at. He denies any fever, chills, nausea or vomiting. He has experienced pain like this before but only intermittently. He arrived in the ER hemodynamically stable. A CT abdomen and pelvis revealed acute cholecystitis. Of note, there was also an incidental finding of right lower lobe mass. Patient has been made aware of the mass before and underwent biopsy in the past. He was told that this was benign. The CT scan was compared to a chest radiograph to be have in record from 2016. There has been any increase in size in the interval period. Hospital Course: Patient is a 68 year old male former tobacco smoker with a PMH of obesity, HLD and HTN currently admitted with acute on chronic cholecystitis wiht cholelithiasis. He is POD#2 S/P lap cholecystectomy. Surgery has signed off. Of note, patient also has a lung mass that has grown in size. Radiology consulted for biopsy. As it seemed like no procedure will be done over the weekend, patient and family requested to be discharged. I was assured that patient has a PCP who is aware of this mass. I recommended outpatient follow up with PCP to coordinate for the biopsy. Vital Signs/Physical Exam: Temp Pulse Resp BP Pulse Ox 97.9 F 76 18 116/63 94 09/22/19 12:16 09/22/19 12:16 09/22/19 12:16 09/22/19 12:16 09/22/19 12:16 Please refer to progress note Laboratory Data at Discharge: WBC 10.2 K/uL (4.3-10.9) D 09/22/19 05:39 Hgb 12.3 g/dL (13.6-17.9) L 09/22/19 05:39 Hct 36.2 % (39.6-49.0) L 09/22/19 05:39 Plt Count 272 K/uL (152-406) 09/22/19 05:39 Sodium 138 mmol/L (136-145) 09/21/19 05:25 Potassium 3.6 mmol/L (3.5-5.1) 09/21/19 05:25 BUN 26 mg/dL (7-18) H 09/21/19 05:25 Creatinine 1.71 mg/dL (0.55-1.3) H 09/21/19 05:25 Glucose 119 mg/dL (74-106) H 09/21/19 05:25 Magnesium 2.4 mg/dL (1.8-2.4) 09/22/19 05:39 Total Bilirubin 0.2 mg/dL (0.2-1.0) 09/20/19 05:00 AST 21 U/L (15-37) 09/20/19 05:00 ALT 28 U/L (12-78) 09/20/19 05:00 Alkaline Phosphatase 66 U/L (45-117) 09/20/19 05:00 Lipase 124 U/L (73-393) 09/20/19 05:00 Home Medications: Brimonidine Tartrate/Timolol [Combigan 0.2%-0.5% Eye Drops] 1 drop EACH EYE BID 09/20/19 Carbamazepine [Tegretol Xr] 200 mg PO DAILY 09/20/19 Celecoxib 200 mg PO DAILY 09/20/19 Fenofibrate [Tricor*] 145 mg PO DAILY 09/20/19 Indapamide [Lozol] 2.5 mg PO DAILY 09/20/19 L.acidoph,Paracasei, B.lactis [Probiotic] 1 cap PO DAILY 09/20/19 Loratadine [Claritin*] 10 mg PO DAILY 09/20/19 Meclizine HCl [Motion Sickness Relief] 25 mg PO Q6HP PRN 09/20/19 Multivit-Min/FA/Lycopen/Lutein [Centrum Silver Men Tablet] 1 tab PO DAILY 09/20/19 Omeprazole [Prilosec] 40 mg PO DAILY 09/20/19 Amoxicillin/Potassium Clav [Augmentin 875-125 Tablet] 1 each PO BID #5 tablet 09/22/19 Codeine/APAP [Tylenol W/Codeine #3 tab] 1 tab PO Q6HP PRN #20 tab 09/22/19 Docusate/Senna [Senokot-S*] 2 tab PO BEDTIME #10 tab 09/22/19 New Medications: Amoxicillin/Potassium Clav [Augmentin 875-125 Tablet] 1 each PO BID #5 tablet Docusate/Senna [Senokot-S*] 2 tab PO BEDTIME #10 tab Codeine/APAP [Tylenol W/Codeine #3 tab] 1 tab PO Q6HP PRN #20 tab PRN Reason: Pain Diet: Regular
[2019-09-22 16:41] VITALS: BP 122/60; TEMP 98.8
[2019-09-22] MEDS ORDERED: DOCUSATE NA/SENNA CONC 1 TAB PO SCH (21:00)
== END 2019-09-22 17:07 | disposition home or self-care (01) | DRG 418 ==
LOC: ER 03:20 → ERHOLD 10:28 → 2ND 12:14
PROVIDERS: ADMIT Internal Medicine; ATTEND Internal Medicine
PROC: BF121ZZ Fluoroscopy of Gallbladder using Low Osmolar Contrast (ICD-10-PCS; 2019-09-20)
PROC: 0FT44ZZ Resection of Gallbladder, Percutaneous Endoscopic Approach (ICD-10-PCS; principal; 2019-09-20 15:00)
DX: K80.12 Calculus of gallbladder with acute and chronic cholecystitis without obstruction (principal); N17.9 Acute kidney failure, unspecified; E78.5 Hyperlipidemia, unspecified; Z87.891 Personal history of nicotine dependence; R91.8 Other nonspecific abnormal finding of lung field; Z79.899 Other long term (current) drug therapy; E78.1 Pure hyperglyceridemia; E66.01 Morbid (severe) obesity due to excess calories; Z68.32 Body mass index [BMI] 32.0-32.9, adult; E11.9 Type 2 diabetes mellitus without complications; K82.A1 Gangrene of gallbladder in cholecystitis; I10 Essential (primary) hypertension; Z79.891 Long term (current) use of opiate analgesic; Z79.84 Long term (current) use of oral hypoglycemic drugs
CPT/HCPCS: 36415; 71250; 74176; 74300; 76705; 80048; 80076; 81001; 83605; 83690; 83735; 85025; 88304; 93005; 99285; J0330; J1170; J2175; J2250; J2370; J2405; J2543; J2704; J2710; J3010; J7030; J7120

== ENCOUNTER 2020-10-01 07:07 | Day surgery (SDC) | payer OTHER ==
[2020-10-01] MEDS ORDERED: Ringers Lactate 1,000 ML IV ONE (07:39)
[2020-10-01] MEDS ORDERED: propofoL 200 MG/20 ML VIAL IV ONE ×2 (08:45)
[2020-10-01] MEDS ORDERED: LIDOCAINE 1% MPF 5 ML VIAL ONE (08:45)
--- NOTE | 2020-10-01 09:31 | ENDO RPT ---
[address], [address] COLONOSCOPY PROCEDURE REPORT EXAM DATE: 10/01/2020 PATIENT NAME: Pedor Hou MR #: [id number] BIRTHDATE: 1950 ATTENDING: Hernan Scales Dr STATUS: outpatient [employer] OUTREACH WORKER: Yamilet March RN and Nataly Hernandez INDICATIONS: The patient is a 69 yr old Male here for a colonoscopy due to personal history of colon polyps PROCEDURE PERFORMED: Colonoscopy with biopsy - cold polypectomy and Colonoscopy with snare polypectomy MEDICATIONS: Per Anesthesia. ESTIMATED BLOOD LOSS: None CONSENT: The patient understands the risks and benefits of the procedure and understands that these risks include, but are not limited to: sedation, allergic reaction, infection, perforation and/or bleeding. Alternative means of evaluation and treatment include, among others: physical exam, x-rays, and/or surgical intervention. The patient elects to proceed with this endoscopic procedure. DESCRIPTION OF PROCEDURE: During intra-op preparation period all mechanical medical equipment was checked for proper function. Hand hygiene and appropriate measures for infection prevention was taken. Procedure, possible complications, alternatives including, but not limited to possibility of bleeding, perforation, tear, infection, sepsis, need for surgery, need for blood transfusion, were explained to the patient. After the risks, benefits and alternatives of the procedure were thoroughly explained, Informed consent was verified, confirmed and timeout was successfully executed by the treatment team. The patient was placed in the left lateral position. A digital rectal exam was performed and revealed a 3 mm nodule at apex of right lobe of the prostate. After appropriate level of anesthesia, the scope was passed. The [id number] ([id number]) endoscope was introduced through the anus and advanced to the terminal ileum which was intubated for a short distance. The quality of the prep was good. The instrument was then slowly withdrawn as the colon was fully examined. Scope withdrawal time was 8 minutes. COLON FINDINGS: 6, 5, 3 mm sessile polyps were found in the ascending colon. A polypectomy was performed with cold forceps. A smooth sessile polyp measuring 1 cm in size was found in the transverse colon. A polypectomy was performed colon. A polypectomy was performed with cold forceps. Mild diverticulosis was noted in the sigmoid colon. No bleeding was noted from the diverticulosis. Small internal hemorrhoids were found. Retroflexed views revealed small hemorrhoids. The scope was then completely withdrawn from the patient and the procedure terminated. ADVERSE EVENTS: There were no complications. IMPRESSIONS: 1. 6, 5, 3 mm sessile polyps in the ascending colon; polypectomy was performed with cold forceps 2. 1 cm sessile polyp in the transverse colon; polypectomy was performed with a cold snare with cold forceps 4. Mild diverticulosis in the sigmoid colon 5. Small internal hemorrhoids 6. Intubation to terminal ileum 7. Personal history of colon polyps RECOMMENDATIONS: 1. await biopsy results 2. avoid NSAIDS for 2 weeks 3. urology consult RECALL: Return in 1 year(s) for Colonoscopy. Hernan Scales Dr eSigned: Hernan Scales Dr 10/01/2020 9:30 AM cc: Dez Tang M.D. CPT CODES: ICD9 CODES: 1. 600.1 Nodular prostate 2. 211.3 Benign neoplasm of colon PATIENT NAME: Pedro Hou MR#: [id number]
[2020-10-01 09:48] VITALS: BP 112/63; TEMP 98.2; O2SAT 100
== END 2020-10-01 09:50 | disposition home or self-care (01) ==
LOC: OR 07:07
PROVIDERS: ATTEND Internal Medicine Gastroenterology
PROC: 0DBL8ZX Excision of Transverse Colon, Via Natural or Artificial Opening Endoscopic, Diagnostic (ICD-10-PCS; 2020-10-01)
PROC: 0DBK8ZX Excision of Ascending Colon, Via Natural or Artificial Opening Endoscopic, Diagnostic (ICD-10-PCS; principal; 2020-10-01 08:30)
DX: Z12.11 Encounter for screening for malignant neoplasm of colon (principal); Z86.010 Personal history of colon polyps; D12.2 Benign neoplasm of ascending colon; D12.3 Benign neoplasm of transverse colon; K64.8 Other hemorrhoids; K57.30 Diverticulosis of large intestine without perforation or abscess without bleeding; Z20.822 Contact with and (suspected) exposure to COVID-19
CPT/HCPCS: 45380; 45385; 88305; U0002; J2704 ×2; J7120

== ENCOUNTER 2025-02-27 06:25 | Day surgery (SDC) | payer OTHER ==
[2025-02-26 16:11] LABS: Absolute Lymphocytes (CBC) 1.0 K/uL (0.7-4.9); Hematocrit 40.1 % (39.6-49.0); Hemoglobin 13.4 g/dL (13.6-17.9); MCH 29.9 pg (27.0-35.0); MCHC 33.4 g/dL (32.0-36.0); MCV 89.6 fL (80-100); MPV 8.1 fL (7.6-11.3); Nucleated RBC Absolute Count 0.0 (0-0); Nucleated Red Blood Cells % 0.1 % (0-0); RBC Red Blood Cell Count 4.48 M/uL (4.33-5.43); White Blood Count 5.90 thou/uL (4.3-10.9)
[2025-02-26 16:23] LABS: Anion Gap 8.7 mEq/L (5.0-15.0); BUN Blood Urea Nitrogen 17.0 mg/dL (7-18); Glucose Level 91.0 mg/dL (74-106); Potassium 3.7 mEq/L (3.5-5.1)
[2025-02-27 09:21] VITALS: BP 104/64; TEMP 97; O2SAT 98
== END 2025-02-27 09:00 | disposition home or self-care (01) ==
LOC: OR 06:25
PROVIDERS: ATTEND Internal Medicine Gastroenterology
PROC: 0DBL8ZX Excision of Transverse Colon, Via Natural or Artificial Opening Endoscopic, Diagnostic (ICD-10-PCS; 2025-02-27)
PROC: 0DBK8ZX Excision of Ascending Colon, Via Natural or Artificial Opening Endoscopic, Diagnostic (ICD-10-PCS; principal; 2025-02-27 07:30)
DX: Z12.11 Encounter for screening for malignant neoplasm of colon (principal); Z86.0100 Personal history of colon polyps, unspecified; D12.2 Benign neoplasm of ascending colon; D12.3 Benign neoplasm of transverse colon
CPT/HCPCS: 36415; 80048; 85025; 88305; 93005